=== PATIENT | male | born 1970 | race Native Hawaiian/Other Pacific Islander ===

== ENCOUNTER 2018-11-19 08:25 | Outpatient (CLI) | payer MEDICARE ==
[2018-11-19 18:33] LABS: BASOPHILS % (AUTO) 0.5 %; EOSINOPHILS # (AUTO) 0.3 10^3/uL (0.0-0.7); EOSINOPHILS % (AUTO) 3.9 %; HGB - HEMOGLOBIN 16.4 g/dL (14.0-18.0); LYMPHOCYTES # (AUTO) 2.3 10^3/uL (1.5-3.5); LYMPHOCYTES % (AUTO) 31.8 %; MEAN CORPUSCULAR HEMOGLOBIN 28.3 pg (27.0-31.0); MEAN CORPUSCULAR HGB CONC 32.6 g/dL (32.0-36.0); MEAN PLATELET VOLUME 8.9 fL (7.4-11.4); MONOCYTES # (AUTO) 0.6 10^3/uL (0.0-1.0); MONOCYTES % (AUTO) 8.7 %; NEUTROPHILS % (AUTO) 55.1 %; PLT - PLATELET COUNT 249 10^3/uL (130-450); RED BLOOD COUNT 5.81 10^6/uL (4.70-6.10); RED CELL DISTRIBUTION WIDTH 14.1 % (12.0-15.0); WHITE BLOOD COUNT 7.3 x10^3/uL (4.8-10.8)
[2018-11-19 18:59] LABS: ALBUMIN 4.1 g/dL (3.2-5.5); ALBUMIN/GLOBULIN RATIO 1.5 (1.0-2.2); ALKALINE PHOSPHATASE 67 IU/L (42-121); ALT ALANINE AMINOTRANSFERASE 36 IU/L (10-60); AST ASPARTATE AMINOTRANSFERASE 26 IU/L (10-42); BUN - BLOOD UREA NITROGEN 16 mg/dL (6-20); CALCIUM 9.1 mg/dL (8.5-10.3); CARBON DIOXIDE - CO2 22 mmol/L (21-32); CHLORIDE 103 mmol/L (101-111); CHOL/HDL RATIO 5.3 (<5.0); CHOLESTEROL 255 mg/dL; CREATININE 0.8 mg/dL (0.6-1.2); GFR - MDRD 104 (>89); GLUCOSE 98 mg/dL (70-100); HDL CHOLESTEROL 48 mg/dL; LDL CHOLESTEROL,CALCULATED 185 mg/dL; LDL/HDL RATIO 3.9 (<3.6); SODIUM 136 mmol/L (135-145); TOTAL PROTEIN 6.9 g/dL (6.7-8.2); VLDL CHOLESTEROL 22 mg/dL
[2018-11-19 19:05] LABS: THYROID STIMULATING HORMONE 2.4 uIU/mL (0.34-5.60)
[2018-11-19 19:07] LABS: FREE T4 (FREE THYROXINE) 0.96 ng/dL (0.58-1.64)
[2018-11-19 19:11] LABS: FERRITIN 73.9 ng/mL (23.9-336.2)
[2018-11-19 19:12] LABS: TOTAL T3 0.98 ng/mL (0.87-1.78)
== END 2018-11-19 08:26 ==
LOC: LAB.F 08:25
PROVIDERS: ATTEND Family Medicine
DX: Z00.00 Encounter for general adult medical examination without abnormal findings (principal); E78.5 Hyperlipidemia, unspecified; R53.83 Other fatigue; E03.9 Hypothyroidism, unspecified; R73.09 Other abnormal glucose
CPT/HCPCS: 36415; 80053; 80061; 82306; 82626; 82728; 83721; 84439; 84443; 84480; 84481; 85025

== ENCOUNTER 2019-03-06 08:00 | Outpatient (CLI) | payer MEDICARE ==
[2019-03-06 17:42] LABS: BASOPHILS % (AUTO) 0.4 %; EOSINOPHILS # (AUTO) 0.2 10^3/uL (0.0-0.7); EOSINOPHILS % (AUTO) 2.6 %; HGB - HEMOGLOBIN 15.8 g/dL (14.0-18.0); LYMPHOCYTES # (AUTO) 2.4 10^3/uL (1.5-3.5); LYMPHOCYTES % (AUTO) 31.8 %; MEAN CORPUSCULAR HEMOGLOBIN 27.9 pg (27.0-31.0); MEAN CORPUSCULAR HGB CONC 32.8 g/dL (32.0-36.0); MEAN CORPUSCULAR VOLUME 85.1 fL (80.0-94.0); MEAN PLATELET VOLUME 8.8 fL (7.4-11.4); MONOCYTES # (AUTO) 0.8 10^3/uL (0.0-1.0); MONOCYTES % (AUTO) 10.6 %; NEUTROPHILS # (AUTO) 4.1 10^3/uL (1.5-6.6); NEUTROPHILS % (AUTO) 54.6 %; PLT - PLATELET COUNT 246 10^3/uL (130-450); RED BLOOD COUNT 5.66 10^6/uL (4.70-6.10); RED CELL DISTRIBUTION WIDTH 13.9 % (12.0-15.0); WHITE BLOOD COUNT 7.5 x10^3/uL (4.8-10.8)
[2019-03-06 18:11] LABS: ALBUMIN 4.3 g/dL (3.2-5.5); ALBUMIN/GLOBULIN RATIO 1.3 (1.0-2.2); ALKALINE PHOSPHATASE 66 IU/L (42-121); ALT ALANINE AMINOTRANSFERASE 38 IU/L (10-60); AST ASPARTATE AMINOTRANSFERASE 30 IU/L (10-42); BILIRUBIN,TOTAL 0.9 mg/dL (0.2-1.0); BUN - BLOOD UREA NITROGEN 14 mg/dL (6-20); CALCIUM 9.1 mg/dL (8.5-10.3); CARBON DIOXIDE - CO2 23 mmol/L (21-32); CHLORIDE 105 mmol/L (101-111); CREATININE 0.8 mg/dL (0.6-1.2); GFR - MDRD 104 (>89); GLUCOSE 103 mg/dL (70-100); SODIUM 138 mmol/L (135-145); TOTAL PROTEIN 7.6 g/dL (6.7-8.2)
[2019-03-06 18:47] LABS: CRP - C-REACTIVE PROTEIN < 1.0 mg/dL (0-1.0)
[2019-03-08 19:27] LABS: ANA SCREEN POSITIVE (NEGATIVE)
== END 2019-03-06 23:59 | disposition home or self-care (01) ==
LOC: LAB.F 08:00
PROVIDERS: ATTEND Family Medicine
DX: I77.6 Arteritis, unspecified (principal); R21 Rash and other nonspecific skin eruption
CPT/HCPCS: 36415; 80053; 85025; 85651; 86038; 86140

== ENCOUNTER 2022-11-02 09:03 | Outpatient (CLI) | payer MEDICARE ==
[2022-11-02 14:20] LABS: BASOPHILS % (AUTO) 0.4 %; EOSINOPHILS # (AUTO) 0.2 10^3/uL (0.0-0.7); HGB - HEMOGLOBIN 16.7 g/dL (14.0-18.0); LYMPHOCYTES # (AUTO) 1.8 10^3/uL (1.5-3.5); LYMPHOCYTES % (AUTO) 20.4 %; MEAN CORPUSCULAR HEMOGLOBIN 28.4 pg (27.0-31.0); MEAN CORPUSCULAR HGB CONC 31.5 g/dL (32.0-36.0); MEAN CORPUSCULAR VOLUME 90.1 fL (80.0-94.0); MEAN PLATELET VOLUME 11.2 fL (7.4-11.4); MONOCYTES # (AUTO) 0.6 10^3/uL (0.0-1.0); MONOCYTES % (AUTO) 6.7 %; NEUTROPHILS # (AUTO) 6.3 10^3/uL (1.5-6.6); NEUTROPHILS % (AUTO) 70.1 %; RED BLOOD COUNT 5.88 10^6/uL (4.70-6.10); RED CELL DISTRIBUTION WIDTH 12.8 % (12.0-15.0)
[2022-11-02 14:39] LABS: PLATELET ESTIMATE, MANUAL NORMAL (130-450,000) (NORMAL); PLATELET MORPHOLOGY PLATELET CLUMPING (NORMAL); RBC MORPHOLOGY (MULTIPLE) NORMAL APPEARANCE (NORMAL); SLIDE REVIEW? Indicated
[2022-11-02 16:02] LABS: ALBUMIN/GLOBULIN RATIO 1.2 (1.0-2.2); ALKALINE PHOSPHATASE 68 IU/L (42-121); ALT ALANINE AMINOTRANSFERASE 19 IU/L (10-60); AST ASPARTATE AMINOTRANSFERASE 23 IU/L (10-42); BILIRUBIN,TOTAL 0.9 mg/dL (0.2-1.0); BUN - BLOOD UREA NITROGEN 14 mg/dL (6-20); CALCIUM 10.1 mg/dL (8.5-10.3); CARBON DIOXIDE - CO2 22 mmol/L (21-32); CHLORIDE 105 mmol/L (101-111); CHOL/HDL RATIO 5.9 (<5.0); CHOLESTEROL 281 mg/dL; CREATININE 0.8 mg/dL (0.6-1.2); CRP HIGH SENSITIVITY 4.5 mg/L; GFR - MDRD 103 (>89); GLUCOSE 96 mg/dL (70-100); HDL CHOLESTEROL 48 mg/dL; LDL CHOLESTEROL,CALCULATED 223 mg/dL; LDL/HDL RATIO 4.6 (<3.6); POTASSIUM 4.1 mmol/L (3.5-5.0); SODIUM 139 mmol/L (135-145); TOTAL PROTEIN 7.4 g/dL (6.7-8.2); TRIGLYCERIDES 50 mg/dL; VLDL CHOLESTEROL 10 mg/dL
[2022-11-02 16:09] LABS: THYROID STIMULATING HORMONE 2.22 uIU/mL (0.34-5.60)
[2022-11-02 16:11] LABS: FREE T3 3.24 pg/mL (2.5-3.9)
[2022-11-02 16:13] LABS: FREE T4 (FREE THYROXINE) 0.89 ng/dL (0.58-1.64)
[2022-11-02 16:16] LABS: FERRITIN 107.7 ng/mL (23.9-336.2)
[2022-11-02 21:15] LABS: ESTIMATED AVERAGE GLUCOSE 120 mg/dL (70-100); HEMOGLOBIN A1c% 5.8 % (4.27-6.07)
== END 2022-11-02 09:04 | disposition home or self-care (01) ==
LOC: LAB.S 09:03
PROVIDERS: ATTEND Family Medicine
DX: E78.5 Hyperlipidemia, unspecified (principal); I10 Essential (primary) hypertension; R53.83 Other fatigue; E03.9 Hypothyroidism, unspecified; E55.9 Vitamin D deficiency, unspecified
CPT/HCPCS: 36415; 80053; 80061; 82626; 82728; 83036; 83090; 83721; 84439; 84443; 84480; 84481; 84482; 85025; 86141

== ENCOUNTER 2023-05-31 08:38 | Outpatient (CLI) | payer MEDICARE | END 2023-05-31 08:39 | disposition home or self-care (01) | LOC: LAB.S 08:38 | PROVIDERS: ATTEND Family Medicine | DX: Z53.9 Procedure and treatment not carried out, unspecified reason (principal) | CPT/HCPCS: 36415; 80053; 80061; 82306; 82626; 82728; 83036; 83090; 83721; 84439; 84443; 84480; 84481; 84482; 85025; 86141 ==

== ENCOUNTER 2023-06-01 09:08 | Outpatient (CLI) | payer MEDICARE ==
[2023-06-01 14:56] LABS: ALBUMIN 4.5 g/dL (3.2-5.5); ALBUMIN/GLOBULIN RATIO 1.6 (1.0-2.2); ALKALINE PHOSPHATASE 74 IU/L (42-121); ALT ALANINE AMINOTRANSFERASE 23 IU/L (10-60); AST ASPARTATE AMINOTRANSFERASE 21 IU/L (10-42); BILIRUBIN,TOTAL 0.6 mg/dL (0.2-1.0); BUN - BLOOD UREA NITROGEN 13 mg/dL (6-20); CALCIUM 9.6 mg/dL (8.5-10.3); CARBON DIOXIDE - CO2 26 mmol/L (21-32); CHLORIDE 103 mmol/L (101-111); CHOL/HDL RATIO 4.3 (<5.0); CHOLESTEROL 239 mg/dL; CREATININE 0.8 mg/dL (0.6-1.3); CRP HIGH SENSITIVITY 4.89 mg/L; GFR - MDRD 102 (>89); GLUCOSE 95 mg/dL (74-104); HDL CHOLESTEROL 55 mg/dL; LDL CHOLESTEROL,CALCULATED 161 mg/dL; LDL/HDL RATIO 2.9 (<3.6); POTASSIUM 4.1 mmol/L (3.5-4.5); SODIUM 136 mmol/L (135-145); TOTAL PROTEIN 7.4 g/dL (6.4-8.9); TRIGLYCERIDES 116 mg/dL (48-352); VLDL CHOLESTEROL 23 mg/dL
[2023-06-01 15:02] LABS: THYROID STIMULATING HORMONE 2.24 uIU/mL (0.34-5.60)
[2023-06-01 15:10] LABS: FERRITIN 138.1 ng/mL (23.9-336.2)
[2023-06-03 07:09] LABS: VITAMIN D 25-HYDROXY 60.9 ng/mL (30.0-100.0)
== END 2023-06-01 09:09 | disposition home or self-care (01) ==
LOC: LAB.S 09:08
PROVIDERS: ATTEND Family Medicine
DX: E78.5 Hyperlipidemia, unspecified (principal); I10 Essential (primary) hypertension; R53.83 Other fatigue; E03.9 Hypothyroidism, unspecified; E55.9 Vitamin D deficiency, unspecified; R73.09 Other abnormal glucose
CPT/HCPCS: 36415; 80053; 80061; 82306; 82626; 82728; 83036; 83090; 83721; 84439; 84443; 84480; 84481; 84482; 85025; 86141